=== PATIENT | female | born 2000 | race Caucasian/White ===

== ENCOUNTER 2023-04-13 14:04 | Emergency (ER) | payer MEDICAID ==
[2023-04-13 14:47] LABS: BASOPHILS # (AUTO) 0.1 10^3/uL (0.0-0.1); BASOPHILS % (AUTO) 0.7 %; EOSINOPHILS # (AUTO) 0.3 10^3/uL (0.0-0.7); HCT - HEMATOCRIT 38.9 % (37.0-47.0); HGB - HEMOGLOBIN 13.3 g/dL (12.0-16.0); LYMPHOCYTES # (AUTO) 1.5 10^3/uL (1.5-3.5); LYMPHOCYTES % (AUTO) 15.9 %; MEAN CORPUSCULAR HEMOGLOBIN 31.1 pg (27.0-31.0); MEAN CORPUSCULAR HGB CONC 34.2 g/dL (32.0-36.0); MEAN CORPUSCULAR VOLUME 91.1 fL (81.0-99.0); MEAN PLATELET VOLUME 9.2 fL (7.9-10.8); MONOCYTES # (AUTO) 0.5 10^3/uL (0.0-1.0); MONOCYTES % (AUTO) 5.2 %; NEUTROPHILS # (AUTO) 6.9 10^3/uL (1.5-6.6); NEUTROPHILS % (AUTO) 74.9 %; PLT - PLATELET COUNT 253 10^3/uL (130-450); RED BLOOD COUNT 4.27 10^6/uL (4.20-5.40); RED CELL DISTRIBUTION WIDTH 11.4 % (12.0-15.0); WHITE BLOOD COUNT 9.2 x10^3/uL (4.8-10.8)
[2023-04-13 14:52] LABS: ALBUMIN 5.1 g/dL (3.2-5.5); ALBUMIN/GLOBULIN RATIO 1.8 (1.0-2.2); BILIRUBIN,TOTAL 0.5 mg/dL (0.2-1.0); CALCIUM 9.7 mg/dL (8.5-10.3); CREATININE 0.8 mg/dL (0.6-1.3); POTASSIUM 3.7 mmol/L (3.5-4.5); TOTAL PROTEIN 7.9 g/dL (6.4-8.9)
[2023-04-13] MEDS ORDERED: iohexoL-300 100 ML VIAL ONE (15:41)
--- NOTE | 2023-04-13 15:43 | ED Physician Documentation ---
PD HPI ABD PAIN - Stated complaint Stated Complaint: ABD PX,SHARP - Chief complaint Chief Complaint: Abd Pain - History obtained from History obtained from: Patient, Family - History of Present Illness Quality: Cramping, Sharp Radiation: No: Chest, , Lower back, Left flank, Left shoulder, Right flank, Right shoulder, Upper back Improved by: Meds Worsened by: Moving, Palpation Associated symptoms: No: Fever, Diarrhea, Constipation, Melena, Hematochezia, Dysuria, Hematuria, Vaginal dc - Additional information Additional information: 22-year-old female presents to the emergency department with right lower quadrant abdominal pain that started today. Complains of feeling crampy/sharp. She is currently on her first day of her menses but states this feels different. Has had nausea but no vomiting. Nonradiating. Better with Tylenol, worse with movement and palpation. No fevers. No diarrhea or constipation. No urinary symptoms. No vaginal discharge. No recent travel. No recent antibiotics. Has not had any abdominal surgeries previously. No history of ovarian cyst. Review of Systems Constitutional: denies: Fever, Chills GI: denies: Vomiting, Diarrhea, Hematemesis, Bloody / black stool : denies: Dysuria, Frequency, Hesitancy, Now EGA Skin: denies: Rash Musculoskeletal: denies: Neck pain, Back pain Neurologic: denies: Headache PD PAST MEDICAL HISTORY - Past Medical History Past Medical History: No - Past Surgical History Past Surgical History: No - Allergies Allergies/Adverse Reactions: Allergies Allergy/AdvReac Type Severity Reaction Status Date / Time No Known Drug Allergies Allergy Verified 04/13/23 14:20 - Social History Does the pt smoke?: No Smoking Status: Never smoker Does the pt drink ETOH?: No Does the pt have substance abuse?: No - Immunizations Immunizations are current?: Yes - POLST Patient has POLST: No PD ED PE NORMAL - Vitals Vital signs reviewed: Yes - General General: Alert and oriented X 3, No acute distress - HEENT HEENT: PERRL, Moist mucous membranes - Neck Neck: Supple, no meningeal sign - Cardiac Cardiac: RRR, Strong equal pulses - Respiratory Respiratory: No respiratory distress, Clear bilaterally - Abdomen Abdomen: Soft, Non distended, Other (Tender palpation right lower quadrant near McBurney's point. No peritoneal signs. Negative Rovsing and obturator signs.) - Back Back: No CVA TTP, No spinal TTP - Derm Derm: Warm and dry - Extremities Extremities: No edema - Neuro Neuro: Alert and oriented X 3 - Psych Psych: Normal mood, Normal affect Results - Vitals Vitals: Vital Signs - 24 hr 04/13/23 04/13/23 04/13/23 14:17 16:52 18:00 Temperature 36.2 C L Heart Rate 83 56 L 58 L Respiratory 20 16 16 Rate Blood Pressure 179/83 H 120/69 119/77 O2 Saturation 99 97 100 Oxygen O2 Source Room air - Labs Labs: Laboratory Tests 04/13/23 04/13/23 04/13/23 14:35 14:35 14:35 WBC 9.2 RBC 4.27 Hgb 13.3 Hct 38.9 MCV 91.1 MCH 31.1 H MCHC 34.2 RDW 11.4 L Plt Count 253 MPV 9.2 Neut # (Auto) 6.9 H Lymph # (Auto) 1.5 [place]christ # (Auto) 0.5 Eos # (Auto) 0.3 Baso # (Auto) 0.1 Absolute Nucleated RBC 0.00 Nucleated RBC % 0.0 Sodium 137 Potassium 3.7 Chloride 102 Carbon Dioxide 26 Anion Gap 9.0 BUN 8 Creatinine 0.8 Estimated GFR (MDRD) 89 Glucose 103 Calcium 9.7 Total Bilirubin 0.5 AST 24 ALT 20 Alkaline Phosphatase 42 Total Protein 7.9 Albumin 5.1 Globulin 2.8 Albumin/Globulin Ratio 1.8 Lipase 32 Serum HCG, Qual NEGATIVE Urine Color Urine Clarity Urine pH Ur Specific [place] Urine Protein Urine Glucose (UA) Urine Ketones Urine Occult Blood Urine Nitrite Urine Bilirubin Urine Urobilinogen Ur Leukocyte Esterase Urine RBC Urine WBC Ur Squamous Epith Cells Urine Bacteria Ur Microscopic Review Urine Culture Comments Urine HCG, Qual 04/13/23 16:15 WBC RBC Hgb Hct MCV MCH MCHC RDW Plt Count MPV Neut # (Auto) Lymph # (Auto) [place] # (Auto) Eos # (Auto) Baso # (Auto) Absolute Nucleated RBC Nucleated RBC % Sodium Potassium Chloride Carbon Dioxide Anion Gap BUN Creatinine Estimated GFR (MDRD) Glucose Calcium Total Bilirubin AST ALT Alkaline Phosphatase Total Protein Albumin Globulin Albumin/Globulin Ratio Lipase Serum HCG, Qual Urine Color LT RED Urine Clarity CLOUDY Urine pH 6.5 Ur Specific [place] <=1.005 Urine Protein NEGATIVE Urine Glucose (UA) NEGATIVE Urine Ketones NEGATIVE Urine Occult Blood LARGE H Urine Nitrite NEGATIVE Urine Bilirubin NEGATIVE Urine Urobilinogen 0.2 (NORMAL) Ur Leukocyte Esterase NEGATIVE Urine RBC 6-10 H Urine WBC 0-3 Ur Squamous Epith Cells NONE SEEN Urine Bacteria None Seen Ur Microscopic Review INDICATED Urine Culture Comments NOT INDICATED Urine HCG, Qual NEGATIVE - Rads (name of study) CT abdomen pelvis Relevant Findings:: Final report received, See rad report Pelvic ultrasound Relevant Findings:: Final report received, See rad report PD Medical Decision Making - ED course Complexity details: reviewed results, re-evaluated patient, considered differential, d/w patient ED course: 22-year-old female with right sided pelvic/right lower quadrant abdominal pain. No acute findings on laboratory testing, urinalysis, CT scan or ultrasound. No vaginal discharge. No STD exposure. Pain resolved in the emergency department. Abdomen is soft, nontender nondistended on serial exam. Will continue supportive care and have her follow-up with her doctor for further care. Patient counseled regarding signs and symptoms for which I believe and urgent re-evaluation would be necessary. Patient with good understanding of and agreement to plan and is comfortable going home at this time This document was made in part using voice recognition software. While efforts are made to proofread this document, sound alike and grammatical errors may occur. Departure - Departure Disposition: 01 Home, Self Care Clinical Impression: Abdominal pain Qualifiers: Abdominal location: unspecified location Qualified Code(s): R10.9 - Unspecified abdominal pain Condition: Good Instructions: ED Abdominal Pain Female Non-Specific Abdominal Pain, ED Pelvic Pain [facility] Follow-Up: your,doctor in 3 days if still having pain [Other] Comments: The cause of your pain is unclear today. Your CT scan, ultrasound and laboratory testing did not show any acute abnormalities. Your urinalysis does not show any signs of infection. I would recommend Motrin and Tylenol as needed for pain at home. Your appendix appears normal on CT scan. Your ovaries appear normal on ultrasound. Please return if you worsen. Forms: PCP List Discharge Date/Time: 04/13/23 18:06
[2023-04-13 15:57] LABS: HCG,QUALITATIVE BLOOD NEGATIVE
[2023-04-13 16:19] LABS: BILIRUBIN,URINE NEGATIVE (NEGATIVE); GLUCOSE, URINE (UA) NEGATIVE (NEGATIVE); KETONES,URINE (UA) NEGATIVE (NEGATIVE); LEUKOCYTE ESTERASE, URINE NEGATIVE (NEGATIVE); NITRITE,URINE NEGATIVE (NEGATIVE); OCCULT BLOOD,URINE LARGE (NEGATIVE); PH,URINE 6.5 PH (5.0-7.5); PROTEIN,URINE NEGATIVE (NEGATIVE); UROBILINOGEN,URINE 0.2 (NORMAL) E.U./dL (NORMAL)
[2023-04-13 16:22] LABS: CLARITY,URINE CLOUDY (CLEAR); HCG UR QUAL NEGATIVE
[2023-04-13] MEDS ORDERED: iohexoL-300 100 ML VIAL IVP ONE (16:24)
--- NOTE | 2023-04-13 16:42 | CT Report ---
PROCEDURE: Abdomen/Pelvis W INDICATIONS: RLQ pain CONTRAST: 100mL Omni 300 TECHNIQUE: After the administration of intravenous contrast, a CT scan of the abdomen and pelvis was performed. Images were recorded and evaluated at appropriate window settings. Reformats: coronal and sagittal. F or radiation dose reduction, the following was used: automated exposure control, adjustment of mA and /or kV according to patient size. COMPARISON: None. FINDINGS: Image quality: Excellent. Lung bases and heart: Unremarkable. Liver: No solid mass. Gallbladder and biliary tree: No radiopaque stones or wall thickening. No biliary dilation. Spleen: No splenomegaly. Pancreas: No pancreatic ductal dilation. Adrenals: No adrenal nodule. Kidneys and ureters: No hydronephrosis. No renal cystic lesion which requires follow up. No solid mas s. Bowel and peritoneum: No bowel distension. No pathologic free fluid. Retrocecal appendix is noted and is normal in size and wall thickness. No periappendiceal fat stranding is seen. No abscess collectio n. Lymph nodes: No central or retroperitoneal adenopathy. Vessels: No infrarenal aortic aneurysm. PELVIS Reproductive organs: Unremarkable. Bladder: No abnormal wall thickening, accounting for underdistention. Pelvic lymph nodes: No pelvic adenopathy by size criteria. Bones: No aggressive osseous abnormality. Other: No significant ventral or inguinal hernia. IMPRESSION: 1. Normal appendix is seen in right lower quadrant. No bowel obstruction or abnormal bowel wall thick ening. No abscess collection. No free fluid of free air. 2. No renal stones or hydronephrosis. 3. No finding to explain patient's symptoms. Reviewed by: Servando Harris MD on 04/13/2023 4:41 PM PST Approved by: Servando Harris MD on 04/13/2023 4:41 PM PST Station ID: [id number]
[2023-04-13 17:05] LABS: BACTERIA,URINE None Seen /HPF (None Seen); SQUAMOUS EPITHELIAL CELL,UR NONE SEEN (<= Few); WBC,URINE 0-3 /HPF (0-5)
[2023-04-13 18:09] VITALS: BP 119/77; O2SAT 100
--- NOTE | 2023-04-13 18:17 | Ultrasound Report ---
PROCEDURE: Pelvic w/Doppler Complete INDICATIONS: pelvic pain, R TECHNIQUE: Real-time endovaginal scanning was performed of the pelvic organs, with image documentation. COMPARISON: None. FINDINGS: Uterus: Uterus is anteverted and normal in size at 6.3 x 3.1 x 3.8 cm. The myometrium is homogeneou s. The endometrium measures 6.5 mm in combined thickness. No endometrial mass or fluid is seen. Ovaries: The right ovary measures 4 x 1.7 x 3 cm, with a calculated ovarian volume of 10.9 cc. The left ovary measures 3.3 x 2.5 x 4.3 cm, with a calculated ovarian volume of 18 cc. The ovaries have a normal sonographic appearance. Less than 12 follicles can be seen in each ovary. No adnexal anita s are seen. No cystic lesions measuring greater than 3 cm. Normal arterial and venous flow is seen in bilateral ovaries on color Doppler images. Other: No pathologic free abdominal or pelvic fluid. IMPRESSION: No evidence of ovarian torsion. No abnormality is seen in uterus and bilateral ovaries. Reviewed by: Servando Harris MD on 04/13/2023 6:16 PM PST Approved by: Servando Harris MD on 04/13/2023 6:16 PM PST Station ID: [id number]
== END 2023-04-13 18:06 | disposition home or self-care (01) ==
LOC: ED 14:04
DX: R10.31 Right lower quadrant pain (principal)
CPT/HCPCS: 36415; 74177; 76856; 80053; 81001; 81025; 83690; 84703; 85025; 93975; 99283; 99284; Q9967; 81003; 87086